=== PATIENT | female | born 1950 | race Caucasian/White ===

== ENCOUNTER → 2016-12-11 | Day surgery (SDC) | payer OTHER ==
[~2016-12-11] MED LIST: ASPIRIN81 M2 PO; CALCIUM 600 +1 EAC5 PO; DESOXIMETASONE15 GM TOP; ESTROGEN PO; HORMONE; HYDROCHLOROTHIA25 MG PO; LEVAQUIN PO; LINZESS145 MCG PO; OYSTER CALCIUM500 MG PO; PANTOPRAZOLE SO40 MG PO; PERCOCET5/325 PO; POLYETHYLENE GLY1 GM MC
--- NOTE | ~2016-12-11 | OR ---
Unit #: [id number] #: [id number] Patient: LUIS WHITTEN [id number] [address] [place], [place] [address] [id number] O MR#: [id number] NAME: LUIS WHITTEN ROOM: Date of Procedure: 12/11/2016 Admission Date: 12/11/2016 Surgeon: Flako Huynh M.D. : 1950 Attending Physician: Flako Huynh M.D. Primary Care Physician: Cassy Alvarez A.P.R.N. OPERATIVE REPORT PRIMARY CARE PHYSICIAN Cassy Alvarez A.P.R.N. PREOPERATIVE DIAGNOSES The patient presented with a history of upper abdominal pain after eating. The pain is felt in the mid epigastric area. In addition, she has bloating. She also needs a surveillance colonoscopy, having had history of colonic polyps in the past. PROCEDURES PERFORMED Upper gastrointestinal endoscopy and biopsy as well as colonoscopy with polypectomy. POSTOPERATIVE DIAGNOSES 1. For upper endoscopy; the patient had mild prepyloric antral diffuse gastritis. This was in the form of erosions in the antral area. A biopsy obtained from the antrum for CLOtest. Rest of the examination up to third part of duodenum was normal. 2. For colonoscopy; the patient had multiple polyps. There were 3 polyps, one each in the transverse colon, splenic flexure, and descending colon. These ranged in size from 1 cm to 2 cm each. All the polyps were sessile and were removed using snare cautery polypectomy. They were retrieved and sent for histology. Rest of the examination up to cecum and terminal ileum was normal. The quality of the prep was excellent. RECOMMENDATIONS The above findings do not explain the patient's symptomatology. She will continue taking pantoprazole 40 mg once a day. In addition, an outpatient gastric emptying study is being scheduled. If the latter is normal, a hepatobiliary ultrasound and HIDA scan will be required. We will also follow up results of polyp histology and CLOtest in the office in 6 to 8 weeks' time. The patient will require a repeat colonoscopy in 5 years. SEDATION USED MAC. DESCRIPTION OF PROCEDURE Following detailed explanation of the potential risks and complications of an upper endoscopy and a colonoscopy, namely perforation, bleeding, and complications related to sedation, the patient was brought to GI lab and laid in the left lateral decubitus position. Lubricated tip of the Olympus video upper endoscope was passed through the bite block into the Unit #: [id number] #: [id number] Patient: LUIS WHITTEN proximal esophagus under direct vision. The entire esophageal mucosa was examined and appeared normal. Z-line was nicely demarcated, there being no esophagitis or hiatus hernia. The scope was then advanced into the gastric cavity and the latter was insufflated. Mucosa of the fundus, body, and antrum examined and mild diffuse prepyloric antral erythema and erosions noted indicating antral gastritis. Pylorus was intubated with visualization of the normal duodenal bulb and second and third part of the duodenum. Upon withdrawal and retroflexion, incisura, cardia, and greater curve examined and biopsy obtained from the antrum for CLOtest. The scope was then withdrawn in the distal esophagus. Entire esophageal mucosa was examined all the way up to pharynx and no additional findings noted. The examination table was then turned by 180 degrees and the patient positioned for a colonoscopy. A digital rectal examination was performed, which was normal. Lubricated tip of the Olympus video colonoscope was inserted through the anus and advanced under direct vision. The scope was advanced and passed up to sigmoid into descending colon. No diverticula were noted in this area. The scope tip was then navigated all the way up to cecum with visualization of ileocecal valve and the appendiceal orifice. Preparation was excellent with good visualization and photodocumentation was obtained. Successive segments of the colonic mucosa were examined upon withdrawal. The patient was noted to have 3 polyps, the first one was in the distal transverse colon, second at the splenic flexure, and third in the proximal to mid descending colon. The polyps ranged in size from 1 cm to 2 cm each. All the polyps were sessile and were removed using snare cautery polypectomy. They were all retrieved and sent for histology. Excellent hemostasis was achieved and photodocumentation was obtained. No additional polyps were noted. The patient did not have any diverticulosis nor any internal hemorrhoids. The scope was then withdrawn. The patient returned to the recovery area. She tolerated the procedure without any postprocedure complications. Dictated by.Jone Swain TD: 12/11/2016 16:48 JOB #: [id number] OPERATIVE REPORT Page 1 of 1 X Flako Huynh MD PROCEDURE OPERATIVE NOTE
== END | disposition home or self-care (01) ==
LOC: COPS 07:13
DX: Z12.11 Encounter for screening for malignant neoplasm of colon (principal); D12.3 Benign neoplasm of transverse colon; D12.4 Benign neoplasm of descending colon; K25.9 Gastric ulcer, unspecified as acute or chronic, without hemorrhage or perforation; I10 Essential (primary) hypertension; L93.0 Discoid lupus erythematosus; K21.9 Gastro-esophageal reflux disease without esophagitis; E66.9 Obesity, unspecified; M17.9 Osteoarthritis of knee, unspecified; Z86.010 Personal history of colon polyps; Z87.891 Personal history of nicotine dependence; Z79.82 Long term (current) use of aspirin; Z79.899 Other long term (current) drug therapy; Z68.42 Body mass index [BMI] 45.0-49.9, adult; Z90.710 Acquired absence of both cervix and uterus; Z98.890 Other specified postprocedural states
CPT/HCPCS: 87077; 88305; J2250; J2550

== ENCOUNTER → 2016-12-19 | Outpatient (CLI) | payer OTHER ==
--- NOTE | ~2016-12-19 | NM19 ---
[facility] A Service of [facility] & [facility] RADIOLOGY TEXT RESULTS PATIENT: LUIS WHITTEN LOCATION: [facility] : [birth year] UNIT #: [id number] AGE: [address]: Flako Huynh MD SEX: F ORDER DR: [id number] [facility] [address] [place], [place] [address] [id number] O MR#: [id number] Acc #: [id number] NAME: LUIS WHITTEN : 1950 SEX: F STUDY DATE/TIME: 12/19/2016 8:19 UNIT: [facility] ROOM: STUDY DESCRIPTION: NM Gastric Emptying Study Attending Physician: Flako Huynh M.D. Referring Physician: Flako Huynh M.D. Ordering Physician: Flako Huynh M.D. Primary Care Physician: Cassy Alvarez A.P.R.N. MEDICAL IMAGING REPORT This report is preliminary unless electronic signature is present EXAM Radionuclide gastric emptying scan. HISTORY Nausea and vomiting. Feels like she has eaten rocks, cannot eat any meat without getting sick, when is cannot eat any meat without getting sick, mccord is worse, bloating, constipation, heavy feeling in stomach. No appetite changes. If she does not eat, she gets sick, progressively getting worse. TECHNIQUE Following ingestion of 575 mcCi technetium 99m sulfur colloid admixed in scrambled eggs, anterior and posterior views of the abdomen were obtained at 0, 60, 120, 240 minutes post-ingestion. Region of interest drawn around stomach. Time activity curve constructed. FINDINGS Percent remaining at time intervals as follows: 60 minutes - 67%, 120 minutes - 30%, 240 minutes - 2%. Percent empty at time intervals as follows: 60 minutes - 33%, 120 minutes - 70%, 240 minutes - 98%. IMPRESSION 1. 2 hour solid phase gastric emptying is 70%. Normal is greater than 60%. Four hour solid phase gastric emptying is 98%. Normal is greater than 90%. Dictated by... Andrei Edwards M.D. THIS IS AN ELECTRONICALLY VERIFIED REPORT Andrei Edwards M.D. at 12/20/2016 7:11 PM [facility] A Service of [facility] & [facility] RADIOLOGY TEXT RESULTS PATIENT: LUIS WHITTEN [id number] : [birth year] UNIT #: [id number] AGE: [address]: Flako Huynh MD SEX: F ORDER DR: WILDER/rae TD: 12/19/2016 21:38 JOB #: [id number] MEDICAL IMAGING REPORT Page 1 of 1 COPY
== END | disposition home or self-care (01) ==
LOC: CNUC 07:42
DX: R11.2 Nausea with vomiting, unspecified (principal)
CPT/HCPCS: 78264; A9541

== ENCOUNTER → 2017-01-27 | Outpatient (CLI) | payer OTHER ==
--- NOTE | ~2017-01-27 | US6 ---
[facility] A Service of [facility] RADIOLOGY TEXT RESULTS PATIENT: LUIS WHITTEN LOCATION: [facility] : [birth year] UNIT #: [id number] AGE: [address]: Cassy Alvarez APRN SEX: F ORDER DR: [id number] [facility] [address] [place] [address] [place], [place] [address] [id number] O MR#: [id number] Acc #: [id number] NAME: LUIS WHITTEN : 1950 SEX: F STUDY DATE/TIME: 01/27/2017 7:27 UNIT: [facility] ROOM: STUDY DESCRIPTION: US Abdominal Limited Attending Physician: Cassy Alvarez A.P.R.N. Referring Physician: Cassy Alvarez A.P.R.N. Ordering Physician: Cassy Alvarez A.P.R.N. Primary Care Physician: Cassy Alvarez A.P.R.N. MEDICAL IMAGING REPORT This report is preliminary unless electronic signature is present EXAM Right upper quadrant ultrasound, 01/27 INDICATION Right upper quadrant pain with nausea for the last several months intermittently. FINDINGS Sonographic evaluation is performed of the right upper quadrant in multiple planes. Comparison made CT abdomen from 06/14/2016. The pancreas appears normal. The liver is diffusely echogenic compatible with steatosis. No focal liver lesion. Gallbladder demonstrates no stones or wall thickening. Right kidney morphologically normal and nonobstructed. No free fluid is seen. Common duct is normal at 4 mm internal diameter. Main portal vein patent by Doppler. IMPRESSION Hepatic steatosis, otherwise negative right upper quadrant ultrasound. Dictated by... Konrad Abraham Jr., M.D. THIS IS AN ELECTRONICALLY VERIFIED REPORT Konrad Abraham Jr., M.D. at 01/27/2017 3:48 PM ADELE/fallon TD: 01/27/2017 12:57 JOB #: [id number] MEDICAL IMAGING REPORT [facility] A Service of [facility] & [facility] RADIOLOGY TEXT RESULTS PATIENT: LUIS WHITTEN LOCATION: [facility] #: [id number] : [birth year] UNIT #: [id number] AGE: [address]: Cassy Alvarez APRN SEX: F ORDER DR: Page 1 of 1 COPY
--- NOTE | ~2017-01-27 | NM22 ---
[facility] A Service of [facility] & [facility] RADIOLOGY TEXT RESULTS PATIENT: LUIS WHITTEN LOCATION: [facility] : [birth year] UNIT #: [id number] AGE: [address]: Cassy Alvarez APRN SEX: F ORDER DR: [id number] [facility] [address] [place], [place] [address] [id number] O MR#: [id number] Acc #: [id number] NAME: LUIS WHITTEN : 1950 SEX: F STUDY DATE/TIME: 01/27/2017 8:02 UNIT: US ROOM: STUDY DESCRIPTION: LETI Hepatobiliary W GB Pharm Attending Physician: Cassy Alvarez A.P.R.N. Referring Physician: Cassy Alvarez A.P.R.N. Ordering Physician: Cassy Alvarez A.P.R.N. Primary Care Physician: Cassy Alvarez A.P.R.N. MEDICAL IMAGING REPORT This report is preliminary unless electronic signature is present EXAM HIDA scan with Kinevac DATE 01/27/2017 HISTORY 66-year-old female with nausea, vomiting and bloating since June 2016. COMPARISON Right upper quadrant abdominal ultrasound 01/27/2017. CT abdomen and pelvis 06/14/2016. FINDINGS Following the intravenous administration of 6.0 mCi technetium 99m Choletec, anterior planar images were obtained of the abdomen at 15-minute intervals for 1 hour. Radiopharmaceutical uptake is demonstrated within the liver, and there is visualization of the gallbladder within the first 15 minutes of imaging. Gradual clearance of radiopharmaceutical into the small bowel over the course of the exam. 2.5 mcg Kinevac was administered intravenously and a time-activity curves generated. The calculated gallbladder ejection fraction is 84.6%. IMPRESSION Normal HIDA scan with Kinevac. Ejection fraction 84.6%. Dictated by... Debbie Ernst M.D. THIS IS AN ELECTRONICALLY VERIFIED REPORT Debbie Ernst M.D. at 01/30/2017 8:52 AM LLH/to [facility] A Service of [facility] & [facility] RADIOLOGY TEXT RESULTS PATIENT: LUIS WHITTEN LOCATION: [facility] #: [id number] : [birth year] UNIT #: [id number] AGE: [address]: Cassy Alvarez APRN SEX: F ORDER DR: TD: 01/27/2017 17:26 JOB #: [id number] MEDICAL IMAGING REPORT Page 1 of 1 COPY
== END | disposition home or self-care (01) ==
LOC: CGUS 06:58
DX: R10.9 Unspecified abdominal pain (principal); R14.0 Abdominal distension (gaseous); K76.0 Fatty (change of) liver, not elsewhere classified
CPT/HCPCS: 76705; 78227; A9537; J2805